=== PATIENT | female | born 1990 | race American Indian/Alaskan Native ===

== ENCOUNTER 2016-11-06 12:56 | Outpatient (CLI) | payer BC | END 2016-11-06 12:57 | disposition home or self-care (01) | LOC: LAB 12:56 | DX: Z34.02 Encounter for supervision of normal first pregnancy, second trimester (principal); Z3A.00 Weeks of gestation of pregnancy not specified | CPT/HCPCS: 36415 ==

== ENCOUNTER 2017-02-03 12:21 | Outpatient (CLI) | payer BC ==
[2017-02-03 12:37] LABS: Hematocrit 35.3 % (30.3-42.9); Hemoglobin 11.7 gm/dl (10.1-14.3); Mean Corpuscular HGB Conc 33 % (30-34); Mean Corpuscular Hemoglobin 32 pg (28-32); Mean Corpuscular Volume 97 fl (79-97); Platelet Count 201 K/mm3 (140-440); Red Blood Count 3.65 M/mm3 (3.65-5.03); White Blood Count 12.7 K/mm3 (4.5-11.0)
== END 2017-02-03 12:22 | disposition home or self-care (01) ==
LOC: LAB 12:21
DX: Z34.02 Encounter for supervision of normal first pregnancy, second trimester (principal); Z3A.20 20 weeks gestation of pregnancy
CPT/HCPCS: 36415; 82951; 85027

== ENCOUNTER 2017-04-17 16:01 | Outpatient (CLI) | payer BC | END 2017-04-17 16:02 | disposition home or self-care (01) | LOC: LABHHL 16:01 | DX: Z34.03 Encounter for supervision of normal first pregnancy, third trimester (principal); Z3A.38 38 weeks gestation of pregnancy | CPT/HCPCS: 87116 ==